=== PATIENT | male | born 1990 | race Two or more races ===

== ENCOUNTER 2024-08-05 17:43 | Emergency (ER) | payer OTHER ==
[~2024-08-05] VITALS: Ht 182.9 cm; Wt 122.0 kg
--- NOTE | 2024-08-05 19:04 | ED.PDOC ---
Musculoskeletal HPI Comments 34 year old male presents to ER with complaints of left 2nd toe pain x 3 hours. Patient states a "70 lb rock" slipped out of his hands and hit his left 2nd toe 3 hours prior to arrival to ER and has since been experiencing 7/10 left 2nd toe pain with associated laceration to webspace of left 2nd/3rd toe. Patient presents to ER ambulatory on arrival, favoring right leg on ambulation and notes he does have numbness/tingling to left 2nd toe. Denies left ankle pain or any further symptoms/complaints Chief Complaint: Lower Extremity Time Seen by MD: 18:14 Primary Care Provider: TWYLA Reviewed Notes: Nurses Notes, Medications, Allergies Allergies: Coded Allergies: NO KNOWN ALLERGIES (Unverified , 08/05/24) Home Meds Active Scripts Ibuprofen (Ibuprofen) 800 Mg Tab, 1 TAB PO TID PRN, #30 TAB 0 Refills Prov:ESTEFANÍA ACEEVS 08/05/24 Ciprofloxacin Hcl (Ciprofloxacin Hcl) 500 Mg Tab, 1 TAB PO BID for 7 Days, #14 TAB 0 Refills Prov:ESTEFANÍA ACEVES 08/05/24 Information Source: Patient Mode of Arrival: Ambulatory Past Medical History PAST MEDICAL HISTORY: Denies Surgical History: Denies all surgeries Family History Family History: Unknown Social History Smoker: Non-Smoker Alcohol: Occasionally Drugs: Denies Drug Use Lives In: Home Constitutional: denies: chills, diaphoresis, fatigue, fever, malaise, sweats, weakness, others EENTM: denies: blurred vision, double vision, ear bleeding, ear discharge, ear drainage, ear pain, ear ringing, eye pain, eye redness, hearing loss, mouth pain, mouth swelling, nasal discharge, nose bleeding, nose congestion, nose pain, photophobia, tearing, throat pain, throat swelling, voice changes, others Respiratory: denies: cough, hemoptysis, orthopnea, SOB at rest, shortness of breath, SOB with excertion, stridor, wheezing, others Cardiovascular: denies: chest pain, dizzy spells, diaphoresis, Dyspnea on exertion, edema, irregular heart beat, left arm pain, lightheadedness, palpitations, PND, syncope, others Gastrointestinal: denies: abdomen distended, abdominal pain, blood streaked bowels, constipated, diarrhea, dysphagia, difficulty swallowing, hematemesis, melena, nausea, poor appetite, poor fluid intake, rectal bleeding, rectal pain, vomiting, others Genitourinary: denies: burning, dysuria, flank pain, frequency, hematuria, incontinence, penile discharge, penile sore, pain, testicle pain, testicle swelling, urgency, others Neurological: denies: dizziness, fainting, headache, left sided numbness, left sided weakness, numbness, paresthesia, pre-existing deficit, right sided numbness, right sided weakness, seizure, speech problems, tingling, tremors, weakness, others Musculoskeletal: reports: others (As stated in HPI) Integumetry: reports: others (As stated in HPI) Allergic/Immunocompromised: denies: Difficulty Healing, Frequent Infections, Hives, Itching, others Hematologic/Lymphatic: denies: anemia, blood clots, easy bleeding, easy bruising, swollen glands, others Endocrine: denies: excessive hunger, excessive sweating, excessive thirst, excessive urination, flushing, intolerance to cold, intolerance to heat, unexplained weight gain, unexplained weight loss, others Psychiatric: denies: anxiety, bipolar disorder, depression, hopeless, panic disorder, schizophrenia, sleepless, suicidal, others Physical Exam General Appearance: No Apparent Distress HEENT: PERRL/EOMI Neck: Full Range of Motion, Non-Tender, Normal Respiratory: Chest Non-Tender, Lungs Clear, No Accessory Muscle Use, No Respiratory Distress, Normal Breath Sounds Cardiovascular: No Murmur, No Gallop, Regular Rate/Rhythm Breast Exam: Deferred Gastrointestinal: NOT DONE Genitalia: Deferred Pelvic: Deferred Rectal: Deferred Extremities: Normal capillary refill, Normal range of motion Neurologic: Alert, No Motor Deficits, Normal Affect, Normal Mood, No Sensory Deficits Cerebellar Function: Normal Reflexes: Normal Skin: Dry, Warm Peripheral Pulses: 2+ dorsalis pedis (R), 2+ dorsalis pedis (L), 2+ Radial (R), 2+ Radial (L), 2+ Brachial (R), 2+ Brachial (L) Lymphatic: No Adenopathy Was a procedure done? Was a procedure done?: Yes Sedation Sedation?: No Laceration Repair : Location Webspace of left 2nd/3rd toe Length 2 lacerations <2 cm in size Anesthetic: Lidocaine (1%), Without epi Laceration Repair Prep: Saline, by Irrigation (without any signs of foreign body) Laceration Repair Wound Comple: epidermis/dermis repair Laceration Repair: Number of sutures (Total of 3 sutures placed - patient tolerated well without any complication), Size (4-0), Nylon, Simple Informed consent obtained: Yes Risks, benefits, and alternati: Yes Images 1 - 2 lacerations < 2 cm in size noted to plantar surface/web space of left 2nd/3rd toes. Slight TTP/swelling/erythema localized to wound edges. No nailbed injury/further skin changes noted. Patient able to move all toes of left foot. Pulses intact. Steady gait noted Differential Diagnosis EXT Differential Diagnosis: Sprain, Dislocation, Neurovascular injury X-Ray, Labs, Meds, VS Vital Signs Date Time Temp Pulse Resp B/P (MAP) Pulse Ox O2 Delivery O2 Flow Rate FiO2 08/05/24 20:48 98.5 91 16 131/92 (105) 95 98.5 08/05/24 20:48 91 16 95 Room Air 08/05/24 17:59 97.7 95 16 125/84 (98) 95 97.7 Current Medications Medications (Trade) Dose Ordered Sig/Kanika Route Start Time Stop Time Status Last Admin Cefazolin Sodium 50 ml @ 100 mls/hr ONCE ONCE IV 08/05/24 18:45 08/05/24 19:14 DC 08/05/24 20:40 PATIENT: CARLOS TAYLOR ACCT: [id number] UNIT: [id number] : 1990 LOC: ER ROOM / BED: / AGE / SEX: 34 / M ADM STATUS: REG ER SERVICE [id number] ORDERING PHYSICIAN: ESTEFANÍA ACEVES PROCEDURE(s): LFOOT - L FOOT 3 VIEW XRAY REASON: left foot pain ORDER NUMBER(s): [id number], ACCESSION NUMBER(s): [id number] CLINICAL INDICATION: left foot pain TECHNIQUE: XY L FOOT 3 VIEW XRAY Comparison: None FINDINGS/IMPRESSION: : Comminuted fracture of the proximal to mid 3rd distal phalanx. There is fracturing of the medial aspect of the 3rd middle phalanx. - These findings are noted on patients left 2nd toe on left foot x-ray Left foot x-ray reviewed Patient neurovascularly intact Hep-Lock IV ordered Ancef 2 mg IV ordered T-dap .5 ml IM ordered Erwin tape and hard sole shoe applied Wound care/cleaning discussed and advised Advised to follow up in two days for wound check Advised to follow up in 10-14 days for removal of sutures Advised to follow up with PCP and cable splicer assistant in 1-2 days Patient verbalized understanding and agreeable with current plan of care Advised to return to ER immediately if symptoms worsen Images Reviewed?: Images reviewed and evaluated by me Time of 1ST Reevaluation: 19:02 Reevaluation 1ST: N/A Patient Education/Counseling: Diagnosis, Treatment, Prognosis, Need For Follow Up Family Education/Counseling: No Family Present Departure 1 Departure Time of Disposition: 19:22 Impression: Primary Impression: Fracture of toe of left foot Qualified Codes: S92.532B - Displaced fracture of distal phalanx of left lesser toe(s), initial encounter for open fracture Disposition: 01 HOME / SELF CARE / HOMELESS Condition: Stable e-Prescriptions Ibuprofen (Ibuprofen) 800 Mg Tab 1 TAB PO TID PRN, #30 TAB 0 Refills Prov: ESTEFANÍA ACEVES 08/05/24 Ciprofloxacin Hcl (Ciprofloxacin Hcl) 500 Mg Tab 1 TAB PO BID for 7 Days, #14 TAB 0 Refills Prov: ESTEFANÍA ACEVES 08/05/24 Discharged With: Significant Other Critical Care Note Critical Care Time?: No Stability Stability form required: No Heart Score Heart Score: Heart Score Response (Comments) Value History N/A 0 EKG N/A 0 Age N/A 0 Risk Factors N/A 0 Troponin N/A 0 Total 0 ESTEFANÍA ACEVES Aug 05, 2024 19:04
[2024-08-05] MEDS: ceFAZolin 1GM/50ML 50 ML IV ONE ×2 (19:20→20:40)
[2024-08-05] MEDS ORDERED: IBUP-1456 PO (19:24)
[2024-08-05] MEDS ORDERED: CIPR500T4 PO (19:24)
--- NOTE | 2024-08-05 20:38 | DVH ---
CLINICAL INDICATION: left foot pain TECHNIQUE: XY L FOOT 3 VIEW XRAY Comparison: None FINDINGS/IMPRESSION: : Comminuted fracture of the proximal to mid 3rd distal phalanx. There is fracturing of the medial aspe ct of the 3rd middle phalanx. Plantar calcaneal enthesophyte. Soft Tissue swelling of the 3rd digit. Normal mineralization and alignment. Joint spaces are preserved.
[2024-08-05] MEDS: TETANUS-DIPTH-ACEL PERTUSSIS 0.5ML SYR Tdap IM ONE (20:41)
[2024-08-05 20:48] VITALS: BP 131/92; PULSE 91; RESP 16; TEMP 98.5; O2SAT 95
== END 2024-08-05 21:02 | disposition home or self-care (01) ==
LOC: ER 17:50
DX: S92.532A Displaced fracture of distal phalanx of left lesser toe(s), initial encounter for closed fracture (principal); W22.09XA Striking against other stationary object, initial encounter; Y93.89 Activity, other specified; Y92.89 Other specified places as the place of occurrence of the external cause; Y99.8 Other external cause status
CPT/HCPCS: 12001; 73630; 96365; 99284; J0690; 90715